=== PATIENT | female | born 1990 | race Caucasian/White ===

== ENCOUNTER 2017-01-08 16:05 | Emergency (ER) | payer OTHER ==
[2017-01-08 16:27] VITALS: BP 118/68
--- NOTE | 2017-01-08 17:54 | UC ---
Ramiro Jackson Rebecca, scribed for Avila Swanson MD on 01/08/17 at 1715 . General HPI - HPI Summary HPI Summary: Pt is a 26 y/o F who presents to [facility] with a CC of dizziness and lightheadedness that began this morning while at work. Dizziness is characterized as room spinning and "like my head was on the ceiling" and has improved since onset. Sx aggravated by movement/activity and alleviated by rest. Additionally c/o cough, clear rhinorrhea, post nasal drip, vomiting secondary to cough and mild sore throat. Denies dysuria, diarrhea, wheezing and ear pain. Pt has been experiencing URI symptoms since 12/19 (about 3 weeks) and was prescribed Azithryomycin 6 days ago which she stopped prematurely 2 days ago. She has been treating symptoms with Delsym and sx are better in the morning and have overall improved since onset. Has been able to eat and drink well. No PMHx asthma. - History of Current Complaint Chief Complaint: UCGeneralIllness Stated Complaint: DIZZY,COLD,COUGH Time Seen by Provider: 01/08/17 17:03 Hx Obtained From: Patient Hx Last Menstrual Period: IUD Onset/Duration: Lasting Days - Dizziness/lightheadedness - today, Lasting Weeks - URI sx - 3 weeks, Still Present Current Severity: Mild Pain Intensity: 2 Pain Location at: Throat Character: Scratchy Aggravating: Movement/activity Alleviating: Rest, Delsym Associated Signs & Symptoms: Positive: Cough, Dizziness, Vomiting - Allergy/Home Medications Allergies/Adverse Reactions: Allergies Allergy/AdvReac Type Severity Reaction Status Date / Time No Known Allergies Allergy Verified 01/08/17 16:27 PMH/Surg Hx/FS Hx/Imm Hx - Additional Past Medical History Additional PMH: NEGATIVE PMHx: DM, HTN, COPD Endocrine History: Dyslipidemia - HLD - Surgical History Surgical History: None Surgery Procedure, Year, and Place: denies - Family History Known Family History: Positive: Hypertension - Social History Alcohol Use: Weekly Substance Use Type: Marijuana Substance Use Comment - Amount & Last Used: 01/04 Smoking Status (MU): Never Smoked Tobacco Review of Systems Constitutional: Negative Skin: Negative Eyes: Negative ENT: Sore Throat, Nasal Discharge, Other - Post nasal drip Respiratory: Cough Cardiovascular: Negative Gastrointestinal: Vomiting - secondary to cough Genitourinary: Negative Motor: Negative Neurovascular: Negative Musculoskeletal: Negative Neurological: Other - Dizziness, lightheadedness Psychological: Negative All Other Systems Reviewed And Are Negative: Yes - Comments Additional Review of Systems Comments: NEGATIVE: Dysuria, diarrhea, wheezing and ear pain Physical Exam Triage Information Reviewed: Yes Vital Signs: Initial Vital Signs Temp 97.5 F 01/08/17 16:20 Resp 16 01/08/17 16:20 BP 118/68 01/08/17 16:20 Pulse Ox 100 01/08/17 16:20 Vital Signs Reviewed: Yes - Additional Comments General: well-appearing, no pain distress Skin: warm, color reflects adequate perfusion, dry Head: normal Eyes: EOMI, KANDY ENT: positive rhinorrhea, dry cough Neck: supple, nontender Respiratory: CTA, breath sounds present Cardiovascular: RRR Abdomen: soft, nontender Bowel: present Musculoskeletal: normal, strength/ROM intact Neurological: normal, sensory/motor intact, A&O x3 Psychological: affect/mood appropriate Course/Dx - Course Course Of Treatment: Pt medications reviewed. - Differential Dx - Multi-Symptom Provider Diagnoses: VERTIGO/DIZZINESS, SINUSITIS Discharge - Discharge Plan Condition: Stable Disposition: HOME Prescriptions: Amoxicillin/Clavulanate TAB* [Augmentin TAB 875*] 875 mg PO BID #20 tab Meclizine HCl [Meclizine 25] 25 mg PO Q6H PRN #15 tab PRN Reason: Dizziness Patient Education Materials: Sinusitis (ED), Vertigo (ED), Dizziness (ED) Referrals: Damian Snyder TOOL LIAISON [Primary Care Provider] - Additional Instructions: FOLLOW UP WITH YOUR DOCTOR. GET RECHECKED FOR ANY WORSENING OF YOUR CONDITION OR QUESTIONS OR CONCERNS. The documentation as recorded by the Ramiro hughes Rebecca accurately reflects the service I personally performed and the decisions made by me, Avila Swanson MD.
== END 2017-01-08 17:25 | disposition home or self-care (01) ==
LOC: UCEAST 16:05
DX: J32.9 Chronic sinusitis, unspecified (principal); R42 Dizziness and giddiness
CPT/HCPCS: 99212; G0463

== ENCOUNTER → 2018-01-09 10:56 | Emergency (ER) | payer OTHER ==
[~2018-01-09 10:56] MED LIST: Ondansetron ODT TAB* 4 MG PO ONE
[2018-01-09 12:06] LABS: Urine Appearance Cloudy; Urine Blood 1+ (Negative); Urine Color Yellow; Urine Ketones 1+ (Negative); Urine Protein Negative (Negative); Urine Red Blood Cell Trace(0-2/hpf) (Absent); Urine Specific Gravity 1.005 (1.010-1.030); Urine Urobilinogen Negative (Negative); Urine White Blood Cell Trace(0-5/hpf) (Absent)
--- NOTE | 2018-01-09 12:06 | ED ---
Psychiatric Complaint - HPI Summary HPI Summary: A 27 y/o female presents to the ED c/o self-harm ideation with a plan since 01/09. She feels disassociated, like she "can't control her legs". She also c/o lightheadedness, nausea, vomiting, double vision, blurry vision and abd pain. She states that recently she lost 15 pounds. She denies any relationship issues , smoking, alcohol or drug use. She deniesfever, chills, CARDENAS, ear pain, sore throat, neck pain, CP, SOB, back pain, dysuria, hematuria, blood in the stool, constipation, edema, bruising, and rashes She started taking Prozac 2 weeks ago but stopped recently. - History Of Current Complaint Chief Complaint: EDMentalHealth Hx Obtained From: Patient Hx Last Menstrual Period: IUD Onset/Duration: Gradual Onset, Lasting Hours Timing: Constant Severity Initially: Moderate Severity Currently: Moderate - Allergies/Home Medications Allergies/Adverse Reactions: Allergies Allergy/AdvReac Type Severity Reaction Status Date / Time azithromycin [From Zithromax] Allergy Vomiting Verified 01/09/18 11:01 PMH/Surg Hx/FS Hx/Imm Hx Endocrine/Hematology History: Denies: Hx Diabetes, Hx Thyroid Disease Cardiovascular History: Denies: Hx Hypertension Respiratory History: Denies: Hx Asthma, Hx Chronic Obstructive Pulmonary Disease (COPD) GI History: Denies: Hx Ulcer - Surgical History Surgery Procedure, Year, and Place: denies Infectious Disease History: No Infectious Disease History: Denies: Hx Clostridium Difficile, Hx Hepatitis, Hx Human Immunodeficiency Virus (HIV), Hx of Known/Suspected MRSA, Hx Shingles, Hx Tuberculosis, Hx Known/ Suspected VRE, Hx Known/Suspected VRSA, History Other Infectious Disease, Traveled Outside the [place] in Last 30 Days - Family History Known Family History: Positive: Hypertension - Social History Alcohol Use: Weekly Substance Use Type: Reports: Marijuana Substance Use Comment - Amount & Last Used: 01/04 Smoking Status (MU): Never Smoked Tobacco Review of Systems Negative: Fever, Chills Positive: Blurred Vision, Other - Positive: double vision ENT: Negative - neck pain Negative: Sore Throat, Ear Ache Negative: Chest Pain Negative: Shortness Of Breath Positive: Abdominal Pain, Vomiting, Nausea Genitourinary: Negative - constipation, blood in stool Negative: dysuria, hematuria Negative: Myalgia - back pain, Edema Negative: Rash, Bruising Neurological: Other - Positive: light headed Negative: Headache Positive: Other - Self- harm ideation with a plan All Other Systems Reviewed And Are Negative: No Physical Exam - Summary Physical Exam Summary: Normal Physical Exam: Appearance: Alert, conversive, nontoxic appearing Skin: Warm, dry, no mottling, no rashes, no contusions HEENT: EOMI, PERRL, moist mucous membranes Neck: No masses on the neck, supple Respiratory: Clear to auscultation, breath sounds present, no rales, no rhonchi , no wheezes Cardiovascular: RRR, pulses are symmetrical in both lower and upper extremities Abdomen: Soft, non-tender Bowel Sounds: Present Musculoskeletal: No CVA tenderness, no obvious deformity, moving all extremities in a grossly normal manner Neurological: A&Ox3, CN II-XII Intact, moving all extremities symmetrically Psychiatric: self-harm ideation with a plan Triage Information Reviewed: Yes Vital Signs On Initial Exam: Initial Vitals Temp Pulse Resp BP Pulse Ox 99.2 F 62 16 130/64 98 01/09/18 11:01 01/09/18 11:01 01/09/18 11:01 01/09/18 11:01 01/09/18 11:01 Vital Signs Reviewed: Yes Diagnostics - Vital Signs Vital Signs Temp Pulse Resp BP Pulse Ox 01/09/18 11:01 99.2 F 62 16 130/64 98 - Laboratory Result Diagrams: 01/09/18 11:58 01/09/18 11:58 Lab Statement: Any lab studies that have been ordered have been reviewed, and results considered in the medical decision making process. - EKG 11:30 Cardiac Rate: Bradycardia - 57 bpm EKG Rhythm: Sinus Bradycardia Summary of EKG Findings: normal QRS, normal QTc, normal axis, normal ST/T wave Re-Evaluation - Re-Evaluation First Eval Re-Evaluation Time: 11:20 Change: Unchanged Comment: Pt cleared for MHE Course/Dx - Course Course Of Treatment: A 27 y/o female presents to the ED c/o self-harm ideation with a plan since 01/09/2018. 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 She will be discharged and referred to a psychiatrist. - Differential Dx/Clinical Impression Provider Diagnosis: Anxiety disorder Discharge - Sign-Out/Discharge Documenting (check all that apply): Patient Departure - Discharge Plan Condition: Stable Disposition: HOME Patient Education Materials: Generalized Anxiety Disorder (ED) Referrals: Damian Snyder NP [Primary Care Provider] - Additional Instructions: Follow up with [facility], your therapist at that clinic. they are referring you to a psychiatrist. Return if worse or any new symptoms. - Billing Disposition and Condition Condition: STABLE Disposition: Home - Attestation Statements Document Initiated by Scribe: Yes Documenting Scribe: Ronnie Brown Provider For Whom Castillo is Documenting (Include Credential): Jessica Fritz MD Scribe Attestation: I, Ronnie Brown, scribed for Jessica Fritz MD on 01/11/18 at 0906. Scribe Documentation Reviewed: Yes Provider Attestation: The documentation as recorded by the Ronnie hughes accurately reflects the service I personally performed and the decisions made by me, Jessica Fritz MD
[2018-01-09 12:08] LABS: ABS Basophils 0 10^3/ul (0-0.2); ABS Eosinophils 0 10^3/ul (0-0.6); ABS Lymphocytes 1.3 10^3/ul (1.0-4.8); ABS Monocytes 0.5 10^3/ul (0-0.8); ABS Neutrophils 4.7 10^3/ul (1.5-7.7); ABS Nucleated RBC 0 10^3/ul; Eosinophil % 0.7 % (0-6); Hematocrit 40 % (35-47); Hemoglobin 13.6 g/dl (12.0-16.0); Lymphocyte % 20.3 % (25-47); Mean Corpuscular HGB Conc 34 g/dl (31-36); Mean Corpuscular Hemoglobin 30 pg (27-31); Mean Corpuscular Volume 87 fL (80-97); Mean Platelet Volume 8.1 um3 (7.4-10.4); Nucleated Red Blood Cells % 0; Platelet Count 233 10^3/ul (150-450); Red Blood Count 4.57 10^6/ul (4.00-5.40); Red Cell Distribution Width 13 % (10.5-15); White Blood Count 6.6 10^3/ul (3.5-10.8)
[2018-01-09 12:27] LABS: EGFR Non-African American 92.8 (>60)
--- OUTSIDE RECORDS SUMMARY | 2018-01-09 12:31 | XMS REPORT ---
:1990 External Reference #:[id number] Author Organization [facility] Address [address] [place] [address] [place] [address] Phone [phone] Care Team Providers Name Role Phone Laly Chen MD Primary Care Physician Unavailable Payers Type Date Identification Numbers Payment Provider Subscriber Commercial Policy Number: [id number] [employer] Jamee Oliveira Medicaid PayID: [id number] [address] [address] [place] [address] Problems Date Description Provider Status Onset: 09/28/2013 Acute bronchitis Julia Huggins, N.P. 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 Cigarette Use Never Smoked Cigarettes ETOH Use Drinks 3 Alcoholic Beverages Per Week Smoking Patient has never smoked Recreational Drug Use Never Used Drugs Daily Caffeine Consumes on average 1 cup of regular coffee per day Exercise Type/Frequency Exercises regularly walks dog 2x/day Currently Active Patient is currently sexually active Allergies, Adverse Reactions, Alerts Date Description Reaction Status Severity Comments 09/16/2013 Zithromax Nausea and Vomiting active Medications Medication Date Status Form Strength Qnty SIG Indications Ordering Provider Fluoxetine 10/15/ Active Capsules 10mg 30caps one by F41.9 Sarah HCL (PMDD) 2018 mouth Varn, daily for N.P. 7 days. Alprazolam 10/15/ Active Tablets 0.25mg 20tabs one by F41.9 2017 mouth up Varn, to two N.P. times daily as needed for anxiety Omeprazole 07/01/ Active Tablets DR 20mg 30tabs 1 by mouth R11.2 2017 every day Varn, N.P. Ondansetron / Active Tablets 4mg Unknown HCL 0000 Fluticasone 02/17/ Hx Suspension 50mcg/Act 16unit 2 sprays R05 Damian Propionate 2017 - s each Claudio, CLINICAL DIRECTOR 12/22/ nostril 2018 qd. No Active 10/02/ Hx Unknown Medications 2016 - 2016 Augmentin 09/28/ Hx Tablets 875-125mg 20tabs 1 tab bid 466.0 Julia 2014 - x 10 days Bhavna, 10/02/ N.P. 2017 Zyrtec 09/28/ Hx Capsules 10mg 30caps 1 cap by 466.0 Julia Allergy 2014 - mouth Bhavna, 10/02/ every day N.P. 2017 Fluticasone 09/16/ Hx Suspension 50mcg/Act 1bottl 2 spray in 465.9 Julia Propionate 2013 - e each Bhavna, 10/02/ nostril in N.P. 2017 in the morning Nuvaring / Hx Ring 0.12-0.015 3units insert 1 Unknown 0000 - mg/24HR ring 10/02/ vaginally 2017 every [address] for 3 weeks, remove, and replace with a new ring after 7 day break for b Clobetasol / Hx Cream 0.05% Unknown Propionate - 2016 Prednisone / Hx Tablets 20mg Unknown 0000 - 2016 Fluoxetine / Hx Capsules 10mg Unknown HCL 0000 - 2016 Mucinex / Hx Tablets ER 600mg twice a Unknown 0000 - 12HR day as 12/22/ needed 2018 Zyrtec / Hx Capsules 10mg take one Unknown Allergy 0000 - tablet by 12/22/ mouth in 2018 the evening Immunizations CPT Code Status Date Vaccine Lot # [id number] Given 08/29/2006 Gardasil (HPV) 32293 Given 06/11/2006 Meningitis MCV4 MenACWY Meningococcal Conjugate Vaccine 63960 Given 06/11/2006 Gardasil (HPV) 00444 Given 06/30/2002 Tdap - Tetanus/Diptheria/Acellular Pertussis 47622 Given 07/23/1999 Hep B Pediatric/Adolescent 97436 Given 11/09/1995 Hep B Pediatric/Adolescent 75568 Given 07/15/1995 Hep B Pediatric/Adolescent 62843 Given 07/19/1993 IPV/Poliomyelitis Immunization 25522 Given 07/19/1993 Measles Mumps And Rubella MMR 70261 Given 07/19/1993 DTaP Vaccine Younger Than 7 28403 Given 06/11/1990 IPV/Poliomyelitis Immunization 66682 Given 04/23/1990 Measles Mumps And Rubella MMR 77402 Given 01/27/1990 Hib Hboc Conjugate 4 Dose Schedule 25443 Given 05/28/1989 IPV/Poliomyelitis Immunization 27379 Given 04/08/1989 IPV/Poliomyelitis Immunization 56432 Given 01/28/1989 IPV/Poliomyelitis Immunization Vital Signs Date Vital Result Comment 12/22/2017 Height 59 inches 4'11" Weight 106.00 lb Heart Rate 56 /min BP Systolic 98 mmHg BP Diastolic 58 mmHg Body Temperature 98.4 F O2 % BldC Oximetry 99 % BMI (Body Mass Index) 21.4 kg/m2 07/01/2017 Weight 117.50 lb Heart Rate 75 /min BP Systolic 120 mmHg BP Diastolic 60 mmHg Body Temperature 97.9 F O2 % BldC Oximetry 99 % 02/17/2017 Height 59.5 inches 4'11.50" Weight 118.00 lb Heart Rate 70 /min BP Systolic Sitting 98 mmHg BP Diastolic Sitting 62 mmHg Body Temperature 97.5 F O2 % BldC Oximetry 98 % BMI (Body Mass Index) 23.4 kg/m2 02/04/2017 Weight 116.25 lb Heart Rate 69 /min BP Systolic Sitting 96 mmHg BP Diastolic Sitting 58 mmHg Body Temperature 97.9 F O2 % BldC Oximetry 97 % 10/02/2016 Height 59.5 inches 4'11.50" Weight 112.00 lb Heart Rate 71 /min BP Systolic Sitting 94 mmHg BP Diastolic Sitting 66 mmHg O2 % BldC Oximetry 99 % BMI (Body Mass Index) 22.2 kg/m2 09/28/2013 Height 59.5 inches 4'11.50" Weight 102.00 lb Heart Rate 68 /min BP Systolic Sitting 90 mmHg BP Diastolic Sitting 58 mmHg Body Temperature 99.1 F BMI (Body Mass Index) 20.3 kg/m2 09/16/2013 Height 59 inches 4'11" Weight 101.00 lb Heart Rate 67 /min BP Systolic Sitting 102 mmHg BP Diastolic Sitting 70 mmHg Body Temperature 98.9 F BMI (Body Mass Index) 20.4 kg/m2 Results Test Date Test Result H/L Range Note Laboratory test finding 09/30/2017 Cytology SEE RESULT BELOW 1 Laboratory test finding 09/01/2017 Clotest SEE RESULT BELOW 2, 3 Lipid Profile 10/05/2016 Triglycerides 56 mg/dL 4 (Trig/Chol/HDL) Cholesterol 237 mg/dL 5 HDL Cholesterol 69.7 mg/dL 6 LDL Cholesterol 156 mg/dL 7 CBC Auto Diff 10/05/2016 White Blood Count 5.7 10^3/uL 3.5-10.8 Red Blood Count 4.25 10^6/uL 4.0-5.4 Hemoglobin 12.7 g/dL 12.0-16.0 Hematocrit 37 % 35-47 Mean Corpuscular Volume 87 fL 80-97 Mean Corpuscular Hemoglobin 30 pg 27-31 Mean Corpuscular HGB Conc 34 g/dL 31-36 Red Cell Distribution Width 13 % 10.5-15 Platelet Count 214 10^3/uL 150-450 Mean Platelet Volume 8 um3 7.4-10.4 Abs Neutrophils 2.7 10^3/uL 1.5-7.7 Abs Lymphocytes 2.2 10^3/uL 1.0-4.8 Abs Monocytes 0.6 10^3/uL 0-0.8 Abs Eosinophils 0.2 10^3/uL 0-0.6 Abs Basophils 0 10^3/uL 0-0.2 Abs Nucleated RBC 0.01 10^3/uL Granulocyte % 47.3 % 38-83 Lymphocyte % 38.1 % 25-47 Monocyte % 10.8 % High 1-9 Eosinophil % 3.2 % 0-6 Basophil % 0.6 % 0-2 Nucleated Red Blood Cells % 0.1 Comp Metabolic Panel 10/05/2016 Sodium 137 mmol/L 133-145 Potassium 4.1 mmol/L 3.5-5.0 Chloride 103 mmol/L 101-111 Co2 Carbon Dioxide 28 mmol/L 22-32 Anion Gap 6 mmol/L 2-11 Glucose 78 mg/dL 70-100 Blood Urea Nitrogen 11 mg/dL 6-24 Creatinine 0.57 mg/dL 0.51-0.95 BUN/Creatinine Ratio 19.3 8-20 Calcium 9.3 mg/dL 8.6-10.3 Total Protein 6.9 g/dL 6.4-8.9 Albumin 4.4 g/dL 3.2-5.2 Globulin 2.5 g/dL 2-4 Albumin/Globulin Ratio 1.8 1-3 Total Bilirubin 0.90 mg/dL 0.2-1.0 Alkaline Phosphatase 35 U/L 34-104 Alt 15 U/L 7-52 Ast 15 U/L 13-39 Egfr Non- 127.2 >60 Egfr 163.6 >60 8 Laboratory test finding 10/05/2016 Lyme Disease Serology Negative Negative 9 TSH (Thyroid Stim Horm) 2.89 mcIU/mL 0.34-5.60 10 Vitamin B12 212 pg/mL 180-914 11 Laboratory test finding 10/05/2016 Dhea Sulfate 259 g/dL 44-332 12 FSH And LH 10/05/2016 FSH (Follicle Stim Hormone) 9.1 mIU/mL 13 LH (Lutenizing Hormone) 24.4 mcIU/mL 14 Laboratory test finding 10/05/2016 Prolactin 40.7 ng/mL High 1.0-25.0 15 Testosterone Free & 10/05/2016 Free Testosterone 0.67 ng/dL 0.06-1.06 16 Total ng/dl Testosterone 42 ng/dL 8-60 17 1 SEE RESULT BELOW Name: JAMEE OLIVEIRA : [address]: Florence Lay MD Acct: [id number] Unit: [id number] AGE: 26 Location: [facility] Re09/30/17 SEX: F Status: REG REF SPEC: [id number] JAD: 09/30/17-[address] [facility] [address]: Florence Lay MD REQ: [id number] RECD: 09/30/17160 STATUS: TIA LAUREN DR: Damian Snyder CLINICAL DIRECTOR _ ORDERED: TP IMAGE ANALYS, HPV/Thin Prep COMMENTS: [id number] Negative for Intraepithelial lesion or Malignancy Date Time Test Result Flag (u) Normal Range 09/30/17 1346 @ HPV RNA Negative Negative @ @ The high-risk HPV types detected by the assay include: 16, @ 18, 31, 33, 35, 39, 45, 51, 52, 56, 58, 59, 66, and 68. A. Ectocervical/Endocervical Specimen Adequacy: Satisfactory of evaluation Transformation zone component identified Patient Information: HPV: High risk HPV RNA testing regardless of pap results. Actual Specimen Date: 09/30/17 LMP If Unknown: 2013 Spec Date if unknown: 2012 Previous Abnormal Pap Smears?:N Signed by and Reported on: ROSA ELENA Richard (ASCP) 1200 This Pap test was evaluated with the assistance of the Social Media NetworksPrep Test Imaging System. Due to cytologic findings at the comb setter microscope, comprehensive manual rescreening by a Delivery Driver Assistant may be required. The Pap Smear is a screening test designed to aid in the detection of premalignant and malignant conditions of the uterine cervix. It is not a diagnostic procedure and should not be used as the sole means of detecting cervical cancer. Both false- positive and false- negative reports do occur. Depending on your risk status, a Pap smear should be obtained and evaluated every 1-3 years. END OF REPORT DEPARTMENT OF PATHOLOGY, [address] [place] [address] Polo Lay M.D. Director [facility] # [id number] 2 [id number] SEE RESULT BELOW Name: JAMEE OLIVEIRA : [address]: Juan Peters MD Acct: [id number] Unit: [id number] AGE: 26 Location: [facility] Re09/01/17 SEX: F Status: DEP REF SPEC: [id number] JAD: 09/01/17-[address] [facility] [address]: Juan Peters MD REQ: [id number] RECD: 09/01/17 STATUS: GABRIELLA LAUREN DR: Damian Snyder CLINICAL DIRECTOR _ SOURCE: GAS ANTRUM SPDESC: ORDERED: Clotest COMMENTS: [id number] Procedure Result Reported Site Clotest Final 09/02/17- 734 ML Clotest Negative * ML - Main Lab . END OF REPORT DEPARTMENT OF PATHOLOGY, [address] [place] [address] Polo Lay M.D. Director [facility] # [id number] 4 Desirable <150 Borderline high 150-199 High 200-499 Very High >500 5 Desirable <200 Borderline high 200-239 High >239 6 Low <40 Desirable: 40-60 High: >60 7 Desirable: <100 mg/dL Near Optimal: 100-129 mg/dL Borderline High: 130-159 mg/dL High: 160-189 mg/dL Very High: >189 mg/dL 8 Because ethnic data is not always readily available, this report includes an eGFR for both -Americans and non- Americans. The National Kidney Disease Education Program (NKDEP) does not endorse the use of the MDRD equation for patients that are not between the ages of 18 and 70, are , have extremes of body size, muscle mass, or nutritional status, or are non- or non-. According to the National Kidney Foundation, irrespective of diagnosis, the stage of the disease is based on the level of kidney function: Stage Description GFR(mL/min/1.73 m(2)) 1 Kidney damage with normal or decreased GFR 90 2 Kidney damage with mild decrease in GFR 60-89 3 Moderate decrease in GFR 30-59 4 Severe decrease in GFR 15-29 5 Kidney failure <15 (or dialysis) 9 Serologic response to B. burgdorferi infection is not detected, but cannot rule out early infection during which low or undetectable antibody levels to B. burgdorferi may be present. If clinically indicated, a new serum specimen should be submitted in 7-14 days. Test Performed by: [place] [address] 10 FASTING 10 HOUR 11 Normal Range 180 to 914 Indeterminate Range 145 to 180 Deficient Range <145 12 Test Performed by: [place] [address] 13 Normally menstruating females - Follicular phase 3 - 9 - Mid-cycle peak 4 - 23 - Luteal phase 1 - 6 Postmenopausal females 16 - 114 14 Normally menstruating females - Follicular Phase 1 - 18 - Mid-Cycle Peak 24 - 105 - Luteal Phase 0.6 - 20 Postmenopausal females 15 - 62 15 Have done on Day 3 of menstrual cycle 16 ADDITIONAL INFORMATION Testing performed by [facility]. This test was developed and its performance characteristics determined by [facility] in a manner consistent with CLIA requirements. This test has not been cleared or approved by the U.S. Food and Drug Administration. 17 ADDITIONAL INFORMATION Testing performed by Liquid Chromatography-Tandem Mass Spectrometry (LC-MS/MS). This test was developed and its performance characteristics determined by [facility] in a manner consistent with CLIA requirements. This test has not been cleared or approved by the U.S. Food and Drug Administration. Test Performed by: [address] [address] Procedures Description No Information Encounters Type Date Location Provider CPT E/M Dx Office Visit 07/01/2017 1:40p [facility] Sarah Evans, N.P. [address] R11.2 - Gate Office Visit 02/17/2017 8:40a [facility] [place] [address] R05 - Gate M89.8x8 Office Visit 02/04/2017 12:10p [facility] Cherie Laguna 418[address] R05 - Javy Jaffe Office Visit 10/02/2016 9:40a [facility] [place] [address] Z00.00 - Gate Z13.220 R53.83 L68.0 Office Visit 09/28/2013 1:00p [facility] Julia Huggins, N.P. 86293 466.0 - Gate Office Visit 09/16/2013 4:00p [facility] Julia Huggins N.P. [address]2336 V70.0 - Gate 465.9 V77.1 V77.91 Plan of Care Future Appointment(s):01/26/2018 4:00 pm - Sarah Evans N.P. at [facility] - Ntlsiopre17/15/2018 - Sarah Evans, N.P.F41.9 Anxiety disorder, unspecifiedNew Medication:Fluoxetine HCL (PMDD) 10 mgAlprazolam 0.25 mgComments: For your anxiety: I have prescribed Fluoxetine 10 mg. Start taking this one tablet daily. I also sent in a prescription for Xanax 0.25 mg.Follow up:F/U 1 month
[2018-01-09 15:10] VITALS: BP 132/56
== END | disposition home or self-care (01) ==
LOC: ED 10:56
DX: F41.9 Anxiety disorder, unspecified (principal); R00.1 Bradycardia, unspecified; Z88.1 Allergy status to other antibiotic agents
CPT/HCPCS: 36415; 80053; 80307; 80320; 80329; 81003; 81015; 83735; 84443; 84702; 85025; 87086; 93005; 99285; A9270-GY; G0480

== ENCOUNTER 2018-01-12 10:50 | Inpatient (IN) | payer OTHER ==
[2018-01-12] MEDS ORDERED: Nicotine Inhaler* 10 MG AMP INH PRN (10:59)
[2018-01-12] MEDS ORDERED: Mouth Piece, Nicotine* 1 EACH CARTRIDGE INH PRN (11:00)
[2018-01-12 11:20] LABS: ABS Basophils 0 10^3/ul (0-0.2); ABS Eosinophils 0 10^3/ul (0-0.6); ABS Lymphocytes 1.5 10^3/ul (1.0-4.8); ABS Monocytes 0.4 10^3/ul (0-0.8); ABS Neutrophils 6.2 10^3/ul (1.5-7.7); ABS Nucleated RBC 0 10^3/ul; Eosinophil % 0.3 % (0-6); Hematocrit 39 % (35-47); Hemoglobin 13.3 g/dl (12.0-16.0); Lymphocyte % 18.8 % (25-47); Mean Corpuscular HGB Conc 34 g/dl (31-36); Mean Corpuscular Hemoglobin 29 pg (27-31); Mean Corpuscular Volume 86 fL (80-97); Mean Platelet Volume 8.3 fL (7.4-10.4); Nucleated Red Blood Cells % 0.1; Platelet Count 233 10^3/ul (150-450); Red Blood Count 4.56 10^6/ul (4.00-5.40); Red Cell Distribution Width 13 % (10.5-15); White Blood Count 8.2 10^3/ul (3.5-10.8)
[2018-01-12 11:37] LABS: EGFR Non-African American 91.4 (>60)
[2018-01-12 11:40] LABS: Urine Appearance Cloudy; Urine Blood 1+ (Negative); Urine Color Yellow; Urine Ketones Negative (Negative); Urine Protein Negative (Negative); Urine Red Blood Cell Trace(0-2/hpf) (Absent); Urine Specific Gravity 1.009 (1.010-1.030); Urine Urobilinogen Negative (Negative); Urine White Blood Cell Trace(0-5/hpf) (Absent)
--- OUTSIDE RECORDS SUMMARY | 2018-01-12 12:02 | XMS REPORT ---
:1990 External Reference #:[id number] Author Organization [employer] Address [address] [place] [address] [place] [address] Phone [phone] Care Team Providers Name Role Phone Laly Chen MD Primary Care Physician Unavailable Payers Type Date Identification Numbers Payment Provider Subscriber Commercial Policy Number: [id number] Powell[employer] Jamee Oliveira Medicaid PayID: [id number] [address] [address] [place] [address] Problems Date Description Provider Status Onset: 09/28/2013 Acute bronchitis Julia Huggins N.P. 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 times daily as needed for anxiety Ondansetron 00/00/ Active Tablets 4mg Unknown HCL 0000 Gabatone / Active Unknown 0000 Gabcore / Active Unknown 0000 B Complex / Active Tablets 1 by mouth Unknown 0000 every day [facility] brand please Spectrazume / Active Unknown 0000 Fluoxetine 12/22/ Hx Capsules 10mg 30caps one by F41.9 Sarah HCL (PMDD) 2018 - mouth Varn, 01/09/ daily for N.P. 2018 7 days. Omeprazole 07/01/ Hx Tablets DR 20mg 30tabs 1 by mouth R11.2 Sarah 2018 - every day Varn, 01/09/ N.P. 2018 Fluticasone 02/17/ Hx Suspension 50mcg/Act 16unit 2 sprays R05 Damian Propionate 2017 - s each Claudio, COMMERCIAL LEASING MANAGER 12/22/ nostril 2018 qd. No Active 10/02/ [...] 1bottl 2 spray in 465.9 Julia Propionate 2014 - e each Bhavna, 10/02/ nostril in [...] 2016 Prednisone / Hx Tablets 20mg Unknown - 2016 Fluoxetine / Hx Capsules 10mg Unknown HCL - 2016 Mucinex / Hx Tablets ER 600mg twice a Unknown 0000 - 12HR day as 12/22/ needed 2018 Zyrtec 00/00/ Hx Capsules 10mg take one Unknown Allergy 0000 - tablet by in 2018 the evening Immunizations CPT Code Status Date Vaccine Lot # [id number] Given 08/29/2006 Gardasil (HPV) 85872 Given 06/11/2006 Meningitis MCV4 MenACWY Meningococcal Conjugate Vaccine 42606 Given 06/11/2006 Gardasil (HPV) 15503 Given 06/30/2002 Tdap - Tetanus/Diptheria/Acellular Pertussis 22022 Given 07/23/1999 Hep B Pediatric/Adolescent 33285 Given 11/09/1995 Hep B Pediatric/Adolescent 59484 Given 07/15/1995 Hep B Pediatric/Adolescent 76955 Given 07/19/1993 IPV/Poliomyelitis Immunization 60142 Given 07/19/1993 Measles Mumps And Rubella MMR 94170 Given 07/19/1993 DTaP Vaccine Younger Than 7 73265 Given 06/11/1990 IPV/Poliomyelitis Immunization 46019 Given 04/23/1990 Measles Mumps And Rubella MMR 51178 Given 01/27/1990 Hib Hboc Conjugate 4 Dose Schedule 69018 Given 05/28/1989 IPV/Poliomyelitis Immunization 80236 Given 04/08/1989 IPV/Poliomyelitis Immunization 63732 Given 01/28/1989 IPV/Poliomyelitis Immunization Vital Signs Date Vital Result Comment 01/09/2018 Height 59 inches 4'11" Weight 103.00 lb with shoes Heart Rate 68 /min BP Systolic 96 mmHg BP Diastolic 68 mmHg O2 % BldC Oximetry 96 % BMI (Body Mass Index) 20.8 kg/m2 12/22/2017 Height 59 inches 4'11" Weight 106.00 [...] Test Result H/L Range Note Laboratory test 12/22/2017 TSH (Thyroid Stim 1.19 mcIU/mL 0.34-5.60 finding Horm) Laboratory test 09/30/2017 Cytology SEE RESULT 1 finding BELOW Laboratory test 09/01/2017 Clotest SEE RESULT 2, 3 finding BELOW Lipid Profile 10/05/2016 Triglycerides 56 mg/dL 4 [...] [address]: Florence Lay MD Acct: [id number] Unit: [id number] AGE: 26 Location: [facility] Re09/30/17 SEX: F Status: REG REF SPEC: [id number] JAD: 09/30/[address]: Florence Lay MD REQ: [id number] RECD: 09/30/17 STATUS: TIA LAUREN DR: Damian Snyder COMMERCIAL LEASING MANAGER _ ORDERED: TP IMAGE ANALYS, HPV/Thin Prep COMMENTS: [id number] Negative for Intraepithelial lesion or Malignancy Date [...] was evaluated with the assistance of the Spark Etailp Test Imaging System. Due to cytologic findings at the data support analyst microscope, comprehensive manual rescreening by a Inspector Rag Sorting may be required. The Pap Smear is [...] years. END OF REPORT DEPARTMENT OF PATHOLOGY, [address] [place] [address] Polo Lay M.D. Director [facility] # [id number] 2 [id number] SEE RESULT BELOW Name: JAMEE OLIVEIRA : [address]: Juan Peters MD Acct: [id number] Unit: [id number] AGE: 26 Location: [facility] Re09/01/17 SEX: F Status: DEP REF SPEC: [id number] JAD: 09/01/17-[address]: Juan Peters MD REQ: [id number] RECD: 09/01/17 STATUS: GABRIELLA LAUREN DR: Damian Snyder COMMERCIAL LEASING MANAGER _ SOURCE: GAS ANTRUM SPDESC: ORDERED: Clotest COMMENTS: [id number] Procedure Result Reported Site Clotest Final 09/02/17- 734 ML Clotest Negative * ML - Main Lab . END OF REPORT DEPARTMENT OF PATHOLOGY, [address] [place] [address] Polo Lay M.D. Director [facility] # [id number] 4 Desirable <150 Borderline high 150-199 High [...] submitted in 7-14 days. Test Performed by: [facility] - [address] [address] 10 FASTING 10 HOUR 11 Normal Range 180 to 914 Indeterminate Range 145 to 180 Deficient Range <145 12 Test Performed by: [address] [address] 13 Normally menstruating females - Follicular phase [...] developed and its performance characteristics determined by [facility] in a manner consistent with CLIA requirements. This test has not been cleared or approved by the U.S. Food and Drug Administration. 17 ADDITIONAL INFORMATION Testing performed by Liquid Chromatography-Tandem Mass Spectrometry (LC-MS/MS). This test was developed and its performance characteristics determined by [facility] in a manner consistent with CLIA requirements. This test has not been cleared or approved by the U.S. Food and Drug Administration. Test Performed by: [place] [address] Procedures Description No Information Encounters Type Date Location Provider CPT E/M Dx Office Visit 12/22/2017 3:40p [facility] Sarah Evans, N.P. [address] F41.9 - [place] Office Visit 07/01/2017 1:40p [facility] Sarah Evans, N.P. [address] R11.2 - [place] Office Visit 02/17/2017 8:40a [facility] [place] [address] R05 - [place] M89.8x8 Office Visit 02/04/2017 12:10p [facility] Cherie Laguna [address] R05 Yasmeen Palafox M.D. Office Visit 10/02/2016 9:40a [facility] [place] [address] Z00.00 - [place] Z13.220 R53.83 L68.0 Office Visit 09/28/2013 1:00p [facility] Julia Huggins, N.P. [address] 466.0 - [place] Office Visit 09/16/2013 4:00p [facility] Julia Huggins, N.P. [address] V70.0 - [place] 465.9 V77.1 V77.91 Plan of Care Future Appointment(s):01/26/2018 4:00 pm - Sarah Evans N.P. at [facility] - Owbnkesib29/02/2018 - Sarah Evans NLashayF32.9 Major depressive disorder, single episode, unspecifiedComments:I am sorry the Fluoxetine did not help. In order to get the care you really need I want you to go the ER now. They will head you in the right direction.
--- NOTE | 2018-01-12 12:08 | ED ---
Psychiatric Complaint - HPI Summary HPI Summary: A 27 y/o female presents to the ED with SI with a plan since 01/09/1018. She states that she came to the ED on 01/09/2018 but had a rough weekend. She says that her thoughts are stabbing myself in the stomach or running into traffic , but denies acting upon these thoughts. She ran out of [employer] after the morning of 01/12/2018. She states that it would take too long for her to see a psychiatrist but she has been following up with a therapist. She also c/o N/V and trouble sleeping and eating but denies Fever, Chills, Erythema (eyes), Sore throat, Chest pain, Shortness of Breath, Cough, Abdominal pain, Dysuria, Hematuria, Myalgia, Edema, Rash and Dizziness. - History Of Current Complaint Chief Complaint: EDMentalHealth Time Seen by Provider: 01/12/18 10:59 Hx Obtained From: Patient Hx Last Menstrual Period: IUD Onset/Duration: Gradual Onset, Lasting Days Timing: Constant Associated Signs And Symptoms: Positive: Sleep Disturbance, Appetite Change Has Suicidal: Reports: Thoughts, With A Plan - Allergies/Home Medications Allergies/Adverse Reactions: Allergies Allergy/AdvReac Type Severity Reaction Status Date / Time azithromycin [From Zithromax] Allergy Vomiting Verified 01/12/18 10:56 Home Medications: Home Medications ALPRAZolam TAB* [Xanax TAB*] 0.25 mg PO BID PRN 01/12/18 [History Confirmed 07/25] FLUoxetine CAP* [PROzac CAP*] 10 mg PO DAILY 01/12/18 [History Confirmed ] PMH/Surg Hx/FS Hx/Imm Hx Endocrine/Hematology History: Denies: Hx Diabetes, Hx Thyroid Disease Cardiovascular History: Denies: Hx Hypertension Respiratory History: Denies: Hx Asthma, Hx Chronic Obstructive Pulmonary Disease (COPD) GI History: Denies: Hx Ulcer Psychiatric History: Denies: Hx Eating Disorder, Hx of Violent Episodes Against Others - Surgical History Surgery Procedure, Year, and Place: denies Infectious Disease History: No Infectious Disease History: Denies: Hx Clostridium Difficile, Hx Hepatitis, Hx Human Immunodeficiency Virus (HIV), Hx of Known/Suspected MRSA, Hx Shingles, Hx Tuberculosis, Hx Known/ Suspected VRE, Hx Known/Suspected VRSA, History Other Infectious Disease, Traveled Outside the [place] in Last 30 Days - Family History Known Family History: Positive: Hypertension - Social History Alcohol Use: Weekly Substance Use Type: Reports: Marijuana Substance Use Comment - Amount & Last Used: 01/04 Smoking Status (MU): Never Smoked Tobacco Review of Systems Positive: Other - Positive: trouble eating and sleeping. Negative: Fever, Chills Negative: Erythema Negative: Sore Throat Negative: Chest Pain Negative: Shortness Of Breath Positive: Vomiting, Nausea. Negative: Abdominal Pain Negative: dysuria, hematuria Negative: Myalgia, Edema Negative: Rash Neurological: Negative - dizziness All Other Systems Reviewed And Are Negative: Yes Physical Exam Triage Information Reviewed: Yes Vital Signs On Initial Exam: Initial Vitals Temp Pulse Resp BP Pulse Ox 98.8 F 66 16 96/48 94 01/12/18 10:53 01/12/18 10:53 01/12/18 10:53 01/12/18 10:53 01/12/18 10:53 Vital Signs Reviewed: Yes Diagnostics - Vital Signs Vital Signs Temp Pulse Resp BP Pulse Ox 01/12/18 10:53 98.8 F 66 16 96/48 94 - Laboratory Lab Results: Lab Results 01/12/18 01/12/18 01/12/18 Range/Units 11:07 11:07 11:20 WBC 8.2 (3.5-10.8) 10^3/ul RBC 4.56 (4.00-5.40) 10^6/ul Hgb 13.3 (12.0-16.0) g/dl Hct 39 (35-47) % MCV 86 (80-97) fL MCH 29 (27-31) pg MCHC 34 (31-36) g/dl RDW 13 (10.5-15) % Plt Count 233 (150-450) 10^3/ul MPV 8.3 (7.4-10.4) fL Neut % (Auto) 75.9 (38-83) % Lymph % (Auto) 18.8 L (25-47) % [place] % (Auto) 4.7 (0-7) % Eos % (Auto) 0.3 (0-6) % Baso % (Auto) 0.3 (0-2) % Absolute Neuts (auto) 6.2 (1.5-7.7) 10^3/ul Absolute Lymphs (auto) 1.5 (1.0-4.8) 10^3/ul Absolute Monos (auto) 0.4 (0-0.8) 10^3/ul Absolute Eos (auto) 0 (0-0.6) 10^3/ul Absolute Basos (auto) 0 (0-0.2) 10^3/ul Absolute Nucleated RBC 0 10^3/ul Nucleated RBC % 0.1 Sodium 139 (135-145) mmol/L Potassium 4.1 (3.5-5.0) mmol/L Chloride 105 (101-111) mmol/L Carbon Dioxide 27 (22-32) mmol/L Anion Gap 7 (2-11) mmol/L BUN 9 (6-24) mg/dL Creatinine 0.75 (0.51-0.95) mg/dL Est GFR ( Amer) 110.5 (>60) Est GFR (Non-Af Amer) 91.4 (>60) BUN/Creatinine Ratio 12.0 (8-20) Glucose 109 H (70-100) mg/dL Calcium 9.6 (8.6-10.3) mg/dL Total Bilirubin 0.90 (0.2-1.0) mg/dL AST 15 (13-39) U/L ALT 10 (7-52) U/L Alkaline Phosphatase 38 (34-104) U/L Total Protein 6.9 (6.4-8.9) g/dL Albumin 4.4 (3.2-5.2) g/dL Globulin 2.5 (2-4) g/dL Albumin/Globulin Ratio 1.8 (1-3) TSH Pending Urine Color Yellow Urine Appearance Cloudy Urine pH 6.0 (5-9) Ur Specific [place] 1.009 L (1.010-1.030) Urine Protein Negative (Negative) Urine Ketones Negative (Negative) Urine Blood 1+ A (Negative) Urine Nitrate Negative (Negative) Urine Bilirubin Negative (Negative) Urine Urobilinogen Negative (Negative) Ur Leukocyte Esterase Negative (Negative) Urine WBC (Auto) Trace(0-5/hpf) (Absent) Urine RBC (Auto) Trace(0-2/hpf) (Absent) Ur Squamous Epith Cells Present A (Absent) Urine Bacteria 1+ A (Absent) Urine Glucose Negative (Negative) Salicylates < 2.50 (<30) mg/dL Acetaminophen < 15 mcg/mL Serum Alcohol < 10 (<10) mg/dL Result Diagrams: 01/12/18 11:07 01/12/18 11:07 Lab Statement: Any lab studies that have been ordered have been reviewed, and results considered in the medical decision making process. Re-Evaluation - Re-Evaluation First Eval Re-Evaluation Time: 11:05 Change: Unchanged Comment: Cleared for MHE Course/Dx - Course Course Of Treatment: A 27 y/o female presents to the ED with SI with a plan since 01/09/1018. Labs were obtained. Per fisher diver net she will be admitted. Dx: anxiety. - Differential Dx/Clinical Impression Provider Diagnosis: Anxiety - Physician Notifications Discussed Care Of Patient With: Inocencio Marshall Time Discussed With Above Provider: 17:15 Instructed by Provider To: Admit As Inpatient Discharge - Sign-Out/Discharge Documenting (check all that apply): Patient Departure - Admit - Discharge Plan Condition: Fair Disposition: ADMITTED TO [facility] Referrals: Damian Snyder LINE REPAIRER [Primary Care Provider] - - Attestation Statements Document Initiated by Scribe: Yes Documenting Scribe: Ronnie Brown Provider For Whom Scribe is Documenting (Include Credential): Ruben Chand MD Scribe Attestation: Ronnie Jackson, scribed for Ruben Chand MD on 01/12/18 at 1724.
[2018-01-13] MEDS ORDERED: cloNIDine TAB* 0.1 MG PO PRN (06:40)
[2018-01-13] MEDS ORDERED: Acetaminophen TAB* 325 MG PO PRN (06:40)
[2018-01-13] MEDS ORDERED: Al Hydrox/Mg Hydrox/Simet LIQ* 30 ML UDC PO PRN (06:40)
[2018-01-13 08:47] VITALS: BP 93/61
[2018-01-13] MEDS ORDERED: Prochlorperazine SUPP* 25 MG SUPP PR SCH (09:00)
[2018-01-13] MEDS: Vitamin THERAPEUTIC TAB PO SCH (11:15)
[2018-01-13] MEDS ORDERED: Metoclopramide TAB* 10 MG PO PRN (16:09)
[2018-01-13] MEDS ORDERED: hydrOXYzine HCL TAB* 25 MG PO PRN (16:41)
[2018-01-13] MEDS ORDERED: Mirtazapine TAB* 15 MG PO SCH (21:00)
--- NOTE | 2018-01-13 21:10 | HP ---
HISTORY AND PHYSICAL: DATE OF ADMISSION: 01/12/18 PROVIDER: Rena Stuart NP, in Psychiatry. SUPERVISING PHYSICIAN: Inocencio Marshall MD * (DICTATED BY RENA STUART NP ) JUSTIFICATION FOR ADMISSION: The patient is in need of 24-hour supervision and care secondary to suicidal ideation. CHIEF COMPLAINT: "I had a rough year 2 years ago, I got off my antidepressant and Xanax in July, had a really good summer and now I have severe vomiting and that has been nonstop." HISTORY OF PRESENT ILLNESS: The patient is a 27-year-old single white female with a history of anxiety disorder and hiatal hernia, who arrives brought in by her family on a voluntary status following the precipitating event of incapacitating anxiety. Melissa has had a recent difficult year 2 years ago. She was prescribed an antidepressant and Xanax. She took that for 8 or 9 months and then in July stopped taking it. She had a good summer, but on , she started vomiting and was vomiting frequently. She has been to see her primary care physician and she has seen a digital analytics manager. She has been diagnosed with the hiatal hernia. Since then, she has been starting severe and nonstop vomiting. She has been treated by many individuals, including the chiropractor who stopped the vomiting for 6 days. She was on supplements and was treated by using pressure points. She had 2 appointments with this chiropractor this week, but was unable to tolerate the vomiting and incapacitating anxiety. She stated she was going to give this situation 3 months but she was unable to do that. She has considered for her hiatal hernia that she would have surgery, but she believes that it will be too invasive. She feels as though the problem is that it is anxiety. Suicidal ideation began on 12/17/17. She has been having trouble socializing. She has had trouble eating. She has had trouble working. She feels like she cannot think straight. PAST PSYCHIATRIC HISTORY: She has taken Prozac and Xanax in the past. The Xanax, she took was 0.25 mg b.i.d. The best outcome she said was that it made her sleepy. She has not had any previous psychiatric or medical admissions. She has not had suicidal ideation in the past other than when this unremitting vomiting has occurred. The previous psychiatric medications have already been mentioned. PAST MEDICAL HISTORY: Her past medical history has been limited to the hiatal hernia that was diagnosed. She believes that this in combination with her high anxiety has caused her to become incapacitated by vomiting. TRAUMA HISTORY: She denies a trauma history. SUBSTANCE ABUSE HISTORY: Includes CBD and marijuana. Other than that, she has no history of substance abuse. TRAUMATIC BRAIN INJURY: She denies. FAMILY HISTORY: She states her mother is likely anxious, but has never been diagnosed. 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 She believes it is a largest in [employer]. 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 She has been troubled by significant problems with state laws and the lack of ability to move quickly through the state laws. She is interested in farming hemp and potentially producing CBD oil. She has been not in the . She has no legal history. REVIEW OF SYSTEMS: The patient reports feeling fatigued. She denies shortness of breath, heat or cold intolerance, chest pain, or abdominal pain. She denies neurological symptoms. She denies fevers or changes in weight. PHYSICAL EXAMINATION VITAL SIGNS: On 01/12/18 at 1839, temperature was 98.2, pulse 72, respirations 16, O2 sat on room air was 100%, blood pressure 92/52. For further exam data, please see the emergency department records. MENTAL STATUS EXAMINATION: This is a slim woman who appears somewhat younger than her stated age who has curly brown hair. She is calm and cooperative. She has a sense of humor. Her speech is normal rate, tone, and volume. Her mood is dysthymic. Her affect is full. Her thought processes are logical. Her thought content is clear of delusions. She is not homicidal. She is mildly suicidal in the context of having severe physical discomfort. She is denying auditory and visual hallucinations. Her insight is good. Her judgment is fair. She is alert and oriented x3. LABORATORY DATA: Laboratory data are well within normal limits. Exceptions include lymphocyte percentage low at 18.8, glucose high at 109. Urine specific gravity is low at 1.009. Urine blood is positive at 1+, urine squamous epithelial cell is present, urine bacteria is present 1+. Toxicology results indicate positive benzodiazepine screen. DIAGNOSIS: [place] I: Anxiety disorder, NOS. IMPRESSION: This is a 27-year-old single white woman, who comes to the hospital in the context of feeling overwhelmed by her significant anxiety, which potentially is causing the nausea and vomiting that she identifies as her major stressors. PLAN: Melissa is admitted to the adult behavioral health unit and placed on q.15 - minute checks for her own safety. She is encouraged to participate in supportive milieu, individual, and group therapies. Estimated length of stay is 3 to 7 days. We may obtain an MMPI for diagnostic clarification. We will titrate medications to efficacy and monitor for mood and thought contents. Discharge planning will include family involvement and outpatient providers. RENA STUART NP [id number]/CPS #: [id number] MARTITA
[2018-01-14] MEDS: Vitamin THERAPEUTIC TAB PO SCH (09:32)
--- NOTE | 2018-01-15 23:03 | DS ---
CC: Damian Snyder NP; Jessica Will, [facility] * DISCHARGE SUMMARY: DATE OF ADMISSION: 01/12/18 DATE OF DISCHARGE: 01/14/18 PROVIDER: Rena Stuart NP, Psychiatry. SUPERVISING PHYSICIAN: Dr. Inocencio Marshall.* (DICTATED BY RENA STUART NP ) DIAGNOSES: [place] I: Generalized anxiety disorder. [place] II: Deferred. [place] III: Gastroesophageal reflux disease, chronic nausea. CONDITION AT THE TIME OF DISCHARGE: Melissa is improved. She is psychiatrically cleared and stable. She participated in some groups and was relatively seclusive to herself. Her family is agreeable to discharge. She has done well here psychiatrically. She tolerated new meds well and she will be following up with Jessica Will at [facility] and Damian Snyder, her primary care provider. MENTAL STATUS EXAM: At the time of discharge, Melissa is calm, cooperative, and makes good eye contact. She is alert and oriented x3. Her grooming is excellent. Her speech pace is normal. Her thought processes are logical. She is not psychotic or delusional. She denies AH, VH, SI and HI. She has reduced anxiety today. She reports not vomiting today, which is a great improvement over the day before. Her insight and judgment are good. She is willing to follow up. She is urged to see a therapist and a psychiatrist or a psychiatric nurse practitioner. DISCHARGE INSTRUCTIONS: A. Medications: 1. Hydroxyzine 25 mg q.6 hours as needed for anxiety. 2. Reglan 10 mg q.6 hours p.r.n. nausea. 3. Mirtazapine 7.5 mg scheduled at bedtime. B. Diet: Regular. C. Activity: As tolerated. She is a nonsmoker. There are no studies pending at the time of discharge. D. Followup care: She has appointments with Jessica Will on 01/15/18 at 9 a.m. and 01/21/18 at 9 a.m. She also has an appointment with Damian Snyder at 02/24 at 10 a.m. E. Substance abuse followup: Not indicated. HOSPITAL COURSE: Part A: Chief complaint: "I had a rough year 2 years ago, I got off my antidepressant and Xanax in July and had a really good summer and now I have severe vomiting that has been nonstop." The patient is a 27-year-old single white female with a history of anxiety disorder and hiatal hernia, who arrived brought in by her family on a voluntary status following the precipitating event of incapacitating anxiety. Melissa has had a recent difficult year 2 years ago. She was prescribed an antidepressant and Xanax. She took that for 8 to 9 months and then in July stopped taking it. She had a good summer, but on 12/17/17, she started vomiting and was vomiting frequently. She has been to see her primary care physician and she has seen a kiln worker. She has been diagnosed with the hiatal hernia. Since then , she has been starting severe and nonstop vomiting. She has been treated by many individuals including the chiropractor, who stopped the vomiting for 6 days. She was on supplements and was treated by using pressure points as well. She had 2 appointments with this chiropractor this week, but was unable to tolerate the vomiting and incapacitating anxiety. So, she came to the hospital. She stated she was going to give this situation 3 months but she was unable to endure that. She has considered for her hiatal hernia that she would have surgery, but she believes that it will be too invasive. She feels as though the problem is that it is anxiety. Suicidal ideation began on 12/17/17. She has been having trouble socializing. She has had trouble eating. She has had trouble working. She feels like she cannot think straight. Part B: Psychiatric treatment was rendered. Melissa was admitted to the adult behavioral unit and placed on 15-minute checks for safety. She did well on the unit, going to some groups and remaining largely seclusive to herself. New medications including mirtazapine, hydroxyzine, and Reglan were added, which she tolerated very well. She felt as though she was enough improved to go home as she did not vomit in the morning and her anxiety was more under control. She is not on an antipsychotic. Her family phoned Dante King and they had a discussion, so the family was involved. No consults were entered. She is improved including her symptoms of high anxiety and nausea. RENA STUART, [employer] [id number]/[facility] #: [id number] MARTITA
== END 2018-01-14 14:15 | disposition home or self-care (01) | DRG 756 ==
LOC: ED 10:50 → BSU 20:00
PROVIDERS: ADMIT Psychiatry & Neurology Psychiatry; ATTEND Psychiatry & Neurology Psychiatry
DX: F41.1 Generalized anxiety disorder (principal); R45.851 Suicidal ideations; K21.9 Gastro-esophageal reflux disease without esophagitis; R11.0 Nausea; K44.9 Diaphragmatic hernia without obstruction or gangrene; F12.10 Cannabis abuse, uncomplicated
CPT/HCPCS: 36415; 80053; 80061; 80307; 80320; 80329; 81003; 81015; 83036; 84443; 85025; 87086; 90686; 99222; 99238; 99284; A9270-GY; G0480